=== PATIENT | female | born 1935 | race Caucasian/White ===

== ENCOUNTER 2016-10-25 19:27 | Inpatient (IN) | payer MEDICARE, OTHER ==
--- NOTE | ~2016-10-25 | DS ---
Discharge Summary [facility] [address] [place]. [address] NAME: STAR NOEL : 36 STATUS : DIS IN PAT#: [id number] AGE: 81 ADM/REG DATE : 10/25/16 MR#: [id number] REPORT SERV DATE: 01/16/17 DICTATED BY: SVITLANA CAROLINA DATE: 01/16/17 REPORT STATUS : Draft TRANSCRIBED BY: JOSHUA DATE: 01/16/17 Data Collection from hospitalization DISCHARGE DIAGNOSES: 1. 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 2. Hypertension. 3. Arthritis. 4. Hypothyroidism. 5. Anxiety and depression. 6. History of trigeminal neuralgias. 7. Insomnia. 8. Cataracts. 9. Hypercholesterolemia. 10.History of myocardial infarction. 11.Right lung mass. 12.Gastroesophageal reflux disease. 13.Hemorrhoids. 14.Neuropathy of the lower extremities. 15.Former smoker. CONSULTATIONS: 1. Jaci Orozco NP. 2. Nate Sharpe MD. PROCEDURES PERFORMED: Right total hip arthroplasty on 10/26/2016. PATHOLOGY: Right femoral head, arthroplasty - focal reactive and degenerative changes (history of stress fracture). No evidence was seen of an infectious or neoplastic process. MEDICATIONS: Tenormin 100 mg daily; Colace 100 mg twice a day; ferrous sulfate 300 mg with breakfast and supper; Vimpat 150 mg three times a day; Synthroid 175 mcg daily; Claritin 10 mg daily; Theragran tablets one tablet with breakfast; Prilosec 20 mg at noon; MiraLAX powder one packet daily; Zocor 40 mg at bedtime; Coumadin 5 mg as instructed; Mylanta 30 mL as needed; Artificial Tears one drop in both eyes daily as needed; Dulcolax 10-15 mg orally or rectally as needed; Dellrose 7.5/325 one to two tablets every to six hours as needed for pain; milk of magnesia 30 mL as needed; MiraLAX powder one packet twice a day as needed; Altace 5 mg at bedtime; Maxzide one tablet on Mondays, Wednesdays, and Fridays; Restoril 30 mg at bedtime; vitamin B12 1000 mcg twice a day; and Artificial Tears one drop daily as needed. CONDITION AT DISCHARGE: Stable. DISPOSITION: The patient was discharged to [facility] on a cardiac diet with activities as instructed. HOSPITAL COURSE: This is an 81-year-old female who fell in the past, and over the past year, has had intermittent pain in the right hip. She now presented with a stress fracture of the Discharge Summary [place] [id number] [place]. [address] NAME: STAR NOEL : 36 STATUS : DIS IN PAT#: [id number] AGE: 81 ADM/REG DATE : 10/25/16 MR#: [id number] REPORT SERV DATE: 01/16/17 DICTATED BY: SVITLANA CAROLINA DATE: 01/16/17 REPORT STATUS : Draft TRANSCRIBED BY: JOSHUA DATE: 01/16/17 femoral head. The patient has a history of hypothyroidism and inferior myocardial infarction in the past, right lung mass, hypercholesterolemia, trigeminal neuralgia, gastroesophageal reflux disease, and hypertension. Treatment options were discussed and it was elected to proceed with surgical intervention. She was admitted to the hospital for further evaluation and treatment. Upon admission, she was seen in consultation by Jaci Orozco regarding preop clearance for surgery. The patient was going to be continued on her Tenormin, Altace, and Maxzide. She was going to be placed on incentive telemetry. EKG was going to be performed. We would utilize O2 as needed to keep her saturations 92% or greater. BNP and troponin were going to be checked. Her Synthroid was continued for hypothyroidism. We were going to check TSH and free T4. Vimpat was continued as well as her Zocor and Prilosec. SCDs and TEDs were going to be ordered. Pending clearance for surgery and post surgery. Hemoglobin A1c was also going to be checked. The following day, she was seen by Dr. Nate Sharpe for preoperative cardiac clearance. The patient has a history of coronary artery disease and is status post percutaneous coronary intervention to the right coronary artery in 2011 with preserved left ventricular/right ventricular function. The patient has no decompensated cardiac condition that he was able to discern and was entirely asymptomatic from a cardiac standpoint. He felt it would be fine for her to proceed with surgical repair of the right hip. He felt she would need to be continued on her beta-popeye through the perioperative period as being on this would minimize her risk of perioperative cardiac event. Altace, Maxzide, and hydralazine were going to be held. She denied any shortness of breath at this time. She was taken to the operating room where she underwent the above-mentioned procedure. She tolerated this well, and there were no complications. On day #1, her INR level was 1.2. She had no new complaints. She had no edema. Her dressings were clean, dry, and intact. Blood pressure was currently controlled. Discharge planning was performed. Level 2 sliding scale insulin continued. A dose of milk of magnesia was given. She was encouraged to mobilize with Physical Therapy. On 10/28/2016, she did complain of hip pain. She did have occasional burping. She was not passing flatus. She denied nausea or vomiting. She did have a poor appetite. White count was 12.3. Her hemoglobin A1c was 6.2. She was alert and cooperative. She had been evaluated by Physical Therapy. Discharge instructions were given. Due to her improved and stable condition, she was discharged to [facility] with the above-stated instructions. Information collected by: Shell Grant I submit the above information as my discharge summary. TIFFANIE/JOSHUA Svitlana Carolina M.D. / [id number] CC: Svitlana Carolina M.D. Discharge Summary [address] [address] NAME: STAR NOEL : 36 STATUS : DIS IN PAT#: [id number] AGE: 81 ADM/REG DATE : 10/25/16 MR#: [id number] REPORT SERV DATE: 01/16/17 DICTATED BY: SVITLANA CAROLINA DATE: 01/16/17 REPORT STATUS : Draft TRANSCRIBED BY: JOSHUA DATE: 01/16/17 Alex De Leon M.D. [facility] Nate Sharpe MD
--- NOTE | ~2016-10-25 | OP ---
Record Of Operation [facility] [address] [place]. 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 PROCEDURE PERFORMED: Right total hip arthroplasty. SURGEON: Svitlana Carolina M.D. STATION TENDER: Cisco Givens. ANESTHESIA: General with local infusion. PROCEDURE IN DETAIL: The patient is clearly identified and after obtaining informed consent is brought to the operating room at [facility] where here the patient is induced under general anesthesia and subsequently placed in the left lateral decubitus position. This concluded, the thigh and flank are prepped and draped in the usual manner. A time-out procedure successfully performed and after registering the knee and marking the anatomy through an approximately 4.5 incision, the skin is divided. The fascial planes are divided. The lateral fascia then is divided. Hemostasis is obtained with electrocautery and a Charnley retractor is applied. The piriformis is identified, tagged, divided, and retracted over the sciatic nerve felt deep in the wound. At which point, the mini approach to the hip is formed with dividing the capsule in a mini approach with a cuff of tissues remaining at the femoral side to accomplish repair at the conclusion of the case. Dislocating the hip, end-stage arthritic changes are noted. The tissue surrounding the femoral neck are protected with the Hohmann retractor and the femoral neck cut is made according to preoperative templating. This concluded, the femoral head is removed. The acetabulum is exposed. The labral and fluvial tissues are removed and reaming is performed. Subsequently trialing with the appropriate trial, the permanent acetabular components placed with the [place] Sector. At which point, the acetabular trial component is then placed. The proximal femur is then addressed. The structures posteromedial to the greater trochanter are removed and this concluded the cookie-akira canal finder lateralizer and reaming is performed. This concluded, broaching is performed and with excellent fit-fill and stability for the implant trialing is performed finding excellent leg length, stability, no impingement, good kickback, no push-pull, and the lesser trochanter palpably at the appropriate distance from the ischium when compared to preoperative templating. The trials were felt to be appropriate. These are all then removed and the permanent implants are then carefully applied uneventfully. Copious irrigation is then performed with same stability and findings noted after insertion. At which point, the joint then is carefully closed in layers including capsule, piriformis, lateral fascia, deep tissues, and skin. Aquacel dressing is applied and the patient is then allowed to awaken, is placed supine and is returned to the recovery room in stable condition having tolerated the procedure well. Record Of Operation [facility] [address] [place]. [address] NAME: STAR NOEL : 36 STATUS : ADM IN PAT#: [id number] AGE: 81 ADM/REG DATE : 10/25/16 MR#: [id number] REPORT SERV DATE: 10/26/16 DICTATED BY: SVITLNAA CAROLINA DATE: 10/26/16 REPORT STATUS : Draft TRANSCRIBED BY: JOSHUA DATE: 10/26/16 ESTIMATED BLOOD LOSS: 200 mL. FLUIDS: 1000 mL. TOURNIQUET TIME: None. PATHOLOGY: Sent specimen. MICROBIOLOGY: None. COMPLICATIONS: None. SPONGE AND NEEDLE COUNTS: Reportedly correct. ANTIBIOTICS: Administered appropriately preoperatively and ordered to be discontinued within 23 hours. IMPLANTS: DePuy hip system, femur Sims, size 5 standard +1.5/36 metal head. Acetabulum, [place] sector 52 with a +4 neutral liner and 2 screws. KWAME/JOSHUA Svitlana Carolina M.D. / [id number] CC: Svitlana Carolina M.D.
--- NOTE | ~2016-10-25 | CN ---
Consultation Report [address] [place]. [address] NAME: STAR NOEL : 36 STATUS : ADM IN PAT#: [id number] AGE: 81 ADM/REG DATE : 10/25/16 MR#: [id number] REPORT SERV DATE: 10/26/16 DICTATED BY: CLINTONJACI GATITO DATE: 10/25/16 REPORT STATUS : Draft TRANSCRIBED BY: MODL DATE: 10/25/16 CONSULTATION DATE OF CONSULTATION: 10/25/2016 REASON FOR CONSULTATION: Consulted for preop clearance for surgery. IDENTIFYING DATA: 1. PCP Alex De Leon. 2. Instructor Business Education Stan Carrasco M.D. 3. Neurologist Shar Buckley M.D. 4. ENT Nj Hernandez M.D. 5. Vascular Surgery, Cisco Etienne Jr. M.D. 6. Orthopedist Teto iWlson M.D. 7. Urologist Mario Baer. HISTORY OF PRESENT ILLNESS: This is a pleasant 81-year-old, female, who presents to Dr. Breezy Carolina after a fall she states approximately a year ago, and over the past year, she has had intermittent pain to her right hip. She now presents with a stress fracture of the femoral head for which she is planned for surgery. The patient has a history of hypothyroidism, inferior UT in the past, a right lung mass, high cholesterol, trigeminal neuralgia, GERD, hypertension. The hospitalist group is consulted to clear her for surgery in the a.m. The patient's history was obtained through interview with the patient coupled with review of b3 bio and [employer]. PAST MEDICAL HISTORY: 1. Arthritis. 2. Hypothyroidism. 3. Anxiety. 4. Depression. 5. Trigeminal neuralgia diagnosed 14 years ago. 6. Insomnia. 7. Wears glasses. 8. Cataracts. 9. Wears dentures. 10.Sinusitis. 11.Hypertension. 12.High cholesterol. 13.UT. 14.Right lung mass. 15.UTI with leaky bladder problems. 16.Right knee pain. 17.GERD. 18.Previous vaginal delivery of children x2. Consultation Report [address] [place]. [address] NAME: STAR NOEL : 36 STATUS : ADM IN PAT#: [id number] AGE: 81 ADM/REG DATE : 10/25/16 MR#: [id number] REPORT SERV DATE: 10/26/16 DICTATED BY: JACI ALONZO DATE: 10/25/16 REPORT STATUS : Draft TRANSCRIBED BY: JOSHUA DATE: 10/25/16 19.Colon polyps. 20.Ankle swelling. 21.Hemorrhoids. 22.Neuropathy of lower extremities. HOME MEDICATIONS: 1. Artificial Tears, one drop ophthalmically daily p.r.n. dryness in both eyes. 2. Atenolol 100 mg p.o. daily. 3. Vitamin D 1000 units p.o. twice a day. 4. Vitamin B12 1000 mcg p.o. twice a day. 5. [place] 5/325 one tablet p.o. twice a day p.r.n. pain. 6. Vimpat 150 mg p.o. three times daily. 7. Synthroid 175 mcg p.o. daily. 8. Prilosec 20 mg p.o. at 12 o'clock. 9. Altace 5 mg p.o. at bedtime. 10.Zocor 40 mg p.o. at bedtime. 11.Restoril 30 mg p.o. at bedtime. 12.Maxzide-25, one tab, p.o. Sunday, Sunday, and Sunday. ALLERGIES: TO TEGRETOL, AND SHE DOES NOT TAKE PLAVIX DUE TO BLEEDING. SOCIAL HISTORY: The patient is for approximately 14 years. She has two children between her and her , was a previous smoker, quit 1975. Lives in a single-level home. Uses a walker since she has the femoral head stress fracture. She does say that she gets shortness of breath when walking the stairs and with exertion. FAMILY HISTORY: Positive for obesity, hyperproteinemia, and hypertension. Mother had hypertension as well as father and her brother. She had seven brothers and five sisters. SURGICAL HISTORY: 1. Bilateral cataract surgery. 2. A cardiac cath with a stent placed in [address] Lomeli for an acute inferior ST- elevation UT. 3. Right middle lobe lung surgery in September 2015. 4. Hysterectomy. 5. Appendectomy 1978. 6. Right knee surgery on 08/08/[address] Wilson. 7. Right hand surgery [address] Gutiérrez. 8. EGD. 9. Colonoscopy. REVIEW OF SYSTEMS: The patient is alert and oriented x3. Has no complaints of nausea or vomiting. No abdominal pain. No chest pain. States has no fever. States presently has no shortness of breath but she has related that she has shortness of breath with exertion at times. No Consultation Report [place] [id number] [place]. [address] NAME: STAR NOEL : 36 STATUS : ADM IN [facility]#: [id number] AGE: 81 ADM/REG DATE : 10/25/16 MR#: [id number] REPORT SERV DATE: 10/26/16 DICTATED BY: JACI ALONZO DATE: 10/25/16 REPORT STATUS : Draft TRANSCRIBED BY: JOSHUA DATE: 10/25/16 agitation and no confusion presently on admission. PHYSICAL EXAMINATION: VITAL SIGNS: From today blood pressure 164/74, heart rate 68, respiratory rate 16, O2 saturation 94% on room air. GENERAL: She is a very pleasant, 81-year-old, female, resting in bed with family at bedside. NEURO: Her head is atraumatic, normocephalic. She is alert and oriented x3. Her cranial nerves are intact. She has pleasant mood and is appropriate. NECK: Neck is supple. Trachea is midline. No JVD noted. No obvious thyromegaly or lymphadenopathy. EENT: Her sclerae are nonicteric. Her pupils are equal, reactive to light. Her nares are patent. Mucous membranes moist. Tongue is midline. No deviation. Soft palate rises equally with phonation. CHEST: No pain with palpation. She states that she has no chest pain even with shortness of breath on exertion but her shortness of breath on exertion is with walking upstairs. LUNGS: Clear to auscultation bilaterally. She has normal respiratory effort. No increased work of breathing at present time with conversation. CARDIOVASCULAR: S1, S2. No appreciable murmurs, rubs, or gallops. She will be placed on defensive monitoring telemetry. EKG is ordered. Her previous EKG displayed in October of 2015 a sinus rhythm with a 1st degree AV block. Her heart rate on auscultation is regular rate and rhythm. Rate in the 60s. ABDOMEN: Soft, nontender, with bowel sounds active. No palpable organomegaly. Last bowel movement was 10/25/2016. EXTREMITIES: Her pulses are present and equal bilaterally. No edema. No calf tenderness. She will have SCDs and TEDs placed for DVT prophylaxis. SKIN: Warm and dry. No unusual rashes or lesions. Normal color and turgor for age. PSYCH: The patient is pleasant and cooperative. Appropriate mood and affect. LABORATORY DATA: Much of the laboratory data is still pending, and we have just a little bit of it back at present time. Her sodium is 138. Her potassium is 3.6, chloride 103, BUN 12, creatinine 0.89, GFR is 61, glucose is 133, calcium is 9.7, alkaline phosphatase is 125. ALT is 15, AST is 19. She has a portable chest x-ray ordered. She also has a present EKG ordered. ASSESSMENT AND PLAN: 1. The patient has hypertension, we are aware. She also has a history of an UT with a stent placed in 2011. We will continue her Tenormin, her Altace and Maxzide is ordered daily. We will place her on defensive telemetry. We will check an EKG which is pending. 2. Shortness of breath on exertion, she states on admission report at home at times. She is not on O2. We will utilize O2 p.r.n. as needed to keep her sats 92% or greater. We will check a BNP and a troponin and also consult Cardiology for which she sees Dr. Stan Carrasco for her shortness of breath and cardiac clearance. She states she has Consultation Report [address] [address] NAME: STAR NOEL : 36 STATUS : ADM IN [facility]#: [id number] AGE: 81 ADM/REG DATE : 10/25/16 MR#: [id number] REPORT SERV DATE: 10/26/16 DICTATED BY: JACI ALONZO DATE: 10/25/16 REPORT STATUS : Draft TRANSCRIBED BY: MODL DATE: 10/25/[address] Carrasco, since earlier in 2016. 3. Hypothyroidism. Aware. We will continue her Synthroid daily. We will check a TSH and a free-T4 on her labs. 4. Trigeminal neuralgia. Aware. She does see Dr. Shar Buckley, her neurologist who manages her trigeminal neuralgia. We will continue her Vimpat as ordered. 5. Hypercholesterolemia. Aware. She will have her Zocor daily continued. 6. Gastroesophageal reflux disease. Aware. We will continue her Prilosec. 7. DVT prophylaxis. We will order SCDs and TEDs pending clearance for surgery and post surgery. Labs ordered; CMP, PT, PTT, INR, urinalysis, portable chest x-ray, EKG, TSH, free T4, BNP, troponin, hemoglobin A1c. The majority of the patient's lab work tonight is still pending as well as urinalysis. Cardiology will need to see her first thing in the morning. It is concerning that she has shortness of breath on exertion, and she does have a history of previous UT as well as stent placement. We will await pending labs for this morning as well as the input from the a.m. team and the cardiac clearance from her project manager/design manager pending surgery. The patient is at risk based on age and her comorbidities. If cleared in the a.m. for surgery, we would then recommend surgery at Dr. Carolina's discretion. The hospitalist group would like to thank you for this consultation. Please let us know if we could be of further assistance. PRITI Jaci Alonzo NP / [id number] CC: Sushma Metcalf M.D.
--- NOTE | ~2016-10-25 | CN ---
Consultation Report [facility] [address] [place]. [address] NAME: STAR NOEL : 36 STATUS : ADM IN PAT#: [id number] AGE: 81 ADM/REG DATE : 10/25/16 MR#: [id number] REPORT SERV DATE: 10/26/16 DICTATED BY: NATE WOMACK DATE: 10/26/16 REPORT STATUS : Draft TRANSCRIBED BY: MODIsela DATE: 10/26/16 CONSULTATION DATE OF CONSULTATION: 10/26/2016 REASON FOR CONSULTATION: Preoperative cardiac clearance. PRIMARY GARAGE MANAGER: Dr. Stan Carrasco. HISTORY OF PRESENT ILLNESS: Ms. Noel is a very pleasant 81-year-old female with a history of obesity, hypertension, hyperlipidemia, and coronary artery disease, status post PCI to the right coronary artery in 2011, with preserved LV/RV function, who fell some time in June. She was briefly evaluated for this, but did not get any specific intervention at that time. She also only had mild soreness in her right hip following the fall. She continue to do her day-to-day activities with minimal limitation over the past two to three months. She walks up stairs. She carries groceries. She is able to clean the home without any symptoms whatsoever. However, her right hip pain has worsened recently, prompted imaging that demonstrated a right hip fracture. She is now awaiting surgery for this. She has no other complaints at this time. She is taking all of her medicines, including her cardiovascular medicines without any issue and is actively following with Dr. Carrasco on an outpatient basis. ALLERGIES: TEGRETOL. PAST MEDICAL HISTORY: As above. SOCIAL HISTORY: The patient lives at home with her and functions independently. She denies using alcohol, smoking, or using drugs. She is very functional. FAMILY HISTORY: Noncontributory for premature cardiovascular disease. HOME MEDICATIONS: 1. Atenolol. 2. Vitamin D. 3. Vitamin B12. 4. Vimpat. 5. Synthroid. 6. Prilosec. 7. Ramipril. 8. Zocor. 9. Restoril. 10.Maxzide. REVIEW OF SYSTEMS: Consultation Report [place] [id number] [facility] [place] [facility] [place] [address] NAME: STAR NOEL : 36 STATUS : ADM IN PAT#: [id number] AGE: 81 ADM/REG DATE : 10/25/16 MR#: [id number] REPORT SERV DATE: 10/26/16 DICTATED BY: NATE WOMACK DATE: 10/26/16 REPORT STATUS : Draft TRANSCRIBED BY: JOSHUA DATE: 10/26/16 As above, all other systems otherwise negative. PHYSICAL EXAMINATION: VITAL SIGNS: Blood pressure 118/69, pulse 88, temperature 97.0. GENERAL: Obese, pleasant, well developed, well nourished. NEURO: Awake, alert and oriented x3; no focal deficits, appropriate mood. HEENT: Moist mucous membranes, anicteric sclerae, no nasal discharge. NECK: No JVD, no carotid bruit. LUNGS: Clear to auscultation bilaterally, no wheezes, rales or rhonchi. CV: Regular rhythm, normal S1/S2, no murmurs, rubs or gallops. ABD: Soft, non-tender, non-distended, no rebound or guarding. EXT: No pitting edema, normal distal pulses. SKIN: Warm, dry and intact; no rash. PERTINENT TESTS FINDINGS: Potassium 3.8, creatinine 0.89. White blood cell count 6.3, hemoglobin 13.3. Troponin 0.05. BNP 69. TSH 0.16 with normal free T4. EKG with sinus bradycardia, some T-wave inversions in lead III, which are old, and aVF; otherwise normal EKG. IMPRESSION AND PLAN: Ms. Noel is a very pleasant 81-year-old female with a history as detailed above, who presents with a right hip fracture, awaiting surgery. She functions at greater than 4 METS, has no decompensated cardiac condition that I am able to discern, and is entirely asymptomatic from a cardiac standpoint (denies chest pains, pressures, dyspnea on exertion, or exertional symptoms). Therefore, I believe it will be fine for her to proceed with surgical repair of right hip. Importantly, she will need to be continued on her beta-popeye through the perioperative period and being on this to minimize her risk of a perioperative cardiac event. Her estimated risk for perioperative cardiac arrest for NC is approximately 2%. This has been fully disclosed to her. We will follow along in postoperative course. JOSSELIN/JOSHUA Nate Womack MD / [id number] CC: Breezy Carolina M.D.
[~2016-10-25 19:27] MED LIST: ALTA2.5 PO; ATEN100 PO; MAX25 PO; NORCO1 TA1 PO; PRILO PO; PROBIOTICS; RESTORIL30 MG PO; SYN1 PO; SYNTHROID175 MCG; TYLENOL ARTHRITIS PO; VIMPAT100 MG PO; VIMPAT150 MG PO; VITC500 PO; ZOCOR20 PO; ZOCOR40 PO
[2016-10-25] MEDS ORDERED: ATEN100 PO (21:32)
[2016-10-25] MEDS ORDERED: VIMPAT150 MG PO (21:32)
[2016-10-25] MEDS ORDERED: NORCO1 TA1 PO (21:33)
[2016-10-25] MEDS ORDERED: ZOCOR40 PO (21:33)
[2016-10-25] MEDS ORDERED: PRILO PO (21:33)
[2016-10-25] MEDS ORDERED: SYNTHROID175 MCG PO (21:33)
[2016-10-25] MEDS ORDERED: VITAMIN D1000 UNI1 PO (21:33)
[2016-10-25] MEDS ORDERED: ALTA5 PO (21:34)
[2016-10-25] MEDS ORDERED: MAX25 PO (21:34)
[2016-10-25] MEDS ORDERED: TEARS PURE OPH (21:35)
[2016-10-25] MEDS ORDERED: CYANO1000T PO (21:35)
[2016-10-25] MEDS ORDERED: RESTORIL30 MG PO (21:35)
[2016-10-25 21:48] LABS: BASOPHILS 0.3 %; BASOPHILS ABSOLUTE 0.02 10/3/uL (0.0-0.16); EOSINOPHILS ABSOLUTE 0.06 10/3/uL (0.0-0.53); HEMATOCRIT 39.9 % (36.0-48.0); HEMOGLOBIN 13.3 g/dL (12.0-16.0); IMMATURE GRANULOCYTES 0.2 %; IMMATURE GRANULOCYTES ABSOLUTE 0.01 10/3/uL (0.0-0.11); LYMPHOCYTES 31.3 %; LYMPHOCYTES ABSOLUTE 1.96 10/3/uL (0.67-4.30); MANUAL DIFF NO %; MEAN CORPUS HGB CONC 33.3 g/dL (32.0-36.0); MEAN CORPUSCULAR HEMOGLOB 30.4 pg (26.0-34.0); MEAN CORPUSCULAR VOLUME 91.3 fL (80-100); MEAN PLATELET VOLUME 9.7 fL (9.2-13.0); MONOCYTES 6.9 %; MONOCYTES ABSOLUTE 0.43 10/3/uL (0.21-1.20); NEUTROPHILS 60.3 %; NEUTROPHILS ABSOLUTE 3.79 10/3/uL (2.02-8.40); PLATELET COUNT 176 10/3/uL (150-400); RBC DISTRIBUTION WIDTH 13.1 % (12.0-16.0); RED CELL COUNT 4.37 10/6/uL (4.0-5.6); WHITE BLOOD CELLS 6.3 10/3/uL (4.5-10.5)
[2016-10-25 21:59] LABS: INTERNATIONAL NORMAL RATI 1.1 UNITS (-); PROTIME (NOT ORD) 14.3 SEC (12.0-14.5)
[2016-10-25 22:02] LABS: A/G RATIO 1.1 (0.7-1.9); ALBUMIN 3.7 G/DL (3.5-5.0); ALKALINE PHOSPHATASE 125 U/L (45-117); BUN (BLOOD UREA NITROGEN) 12 MG/DL (6-23); CALCIUM, SERUM 9.5 MG/DL (8.5-10.4); CHLORIDE, SERUM 103 MMOL/L (96-112); CREATININE 0.89 MG/DL (0.55-1.02); GFR AFRICAN AMERICAN 71 ML/MIN (>=60); GFR NON AFRICAN AMERICAN 61 ML/MIN (>=60); GLOBULIN 3.5 G/DL (2.5-4.1); GLUCOSE, SERUM 133 MG/DL (60-99); POTASSIUM, SERUM 3.8 MMOL/L (3.5-5.3); SGPT(ALT) 15 U/L (5-65); SODIUM, SERUM 138 MMOL/L (135-148); TOTAL BILIRUBIN 0.4 MG/DL (0-1.2); TOTAL PROTEIN 7.2 G/DL (6.0-8.5)
[2016-10-25 22:06] LABS: CO2 (CARBON DIOXIDE) 29 MMOL/L (24-34); SGOT(AST) 19 U/L (5-40)
[2016-10-25 23:10] LABS: B NATRIURETIC PEPTIDE (BNP) 68.5 PG/ML (< 100.0)
[2016-10-25 23:28] LABS: FREE T4 1.46 NG/DL (0.76-1.46)
[2016-10-25 23:40] LABS: TROPONIN I 0.05 NG/ML (<0.05); ULTRASENSITIVE TSH 0.166 MCIU/ML (0.358-3.740)
[2016-10-26 06:53] LABS: ASCORBIC ACID (UR NOT ORDER) NEG (NEG); BILIRUBIN, URINE NEGATIVE (NEG); KETONE, URINE NEGATIVE (NEG); LEUKOCYTE ESTERASE(NOT OR NEG (NEG); WBC (NOT ORDERED) (RFLEX) 1 (0-5)
[2016-10-26 09:58] LABS: GLYCOHEMOGLOBIN (HbA1c) 6.2 % (4.7-6.1)
[2016-10-27 04:29] LABS: BASOPHILS 0.1 %; BASOPHILS ABSOLUTE 0.01 10/3/uL (0.0-0.16); EOSINOPHILS 0 %; IMMATURE GRANULOCYTES 0.2 %; IMMATURE GRANULOCYTES ABSOLUTE 0.03 10/3/uL (0.0-0.11); LYMPHOCYTES 6.4 %; LYMPHOCYTES ABSOLUTE 0.79 10/3/uL (0.67-4.30); MEAN CORPUS HGB CONC 33.4 g/dL (32.0-36.0); MEAN CORPUSCULAR HEMOGLOB 30.6 pg (26.0-34.0); MEAN CORPUSCULAR VOLUME 91.4 fL (80-100); MEAN PLATELET VOLUME 9.9 fL (9.2-13.0); MONOCYTES 6.5 %; NEUTROPHILS 86.8 %; NEUTROPHILS ABSOLUTE 10.71 10/3/uL (2.02-8.40); PLATELET COUNT 156 10/3/uL (150-400); RBC DISTRIBUTION WIDTH 13.4 % (12.0-16.0)
[2016-10-27 04:31] LABS: HEMATOCRIT 32.9 % (36.0-48.0); WHITE BLOOD CELLS 12.3 10/3/uL (4.5-10.5)
[2016-10-27 04:32] LABS: MANUAL DIFF NO %
[2016-10-27 04:35] LABS: INTERNATIONAL NORMAL RATI 1.2 UNITS (-); PROTIME (NOT ORD) 15.5 SEC (12.0-14.5)
[2016-10-27 04:59] LABS: BUN (BLOOD UREA NITROGEN) 15 MG/DL (6-23); CALCIUM, SERUM 8.7 MG/DL (8.5-10.4); CHLORIDE, SERUM 102 MMOL/L (96-112); CO2 (CARBON DIOXIDE) 26 MMOL/L (24-34); CREATININE 0.95 MG/DL (0.55-1.02); GFR AFRICAN AMERICAN 66 ML/MIN (>=60); GFR NON AFRICAN AMERICAN 57 ML/MIN (>=60); SODIUM, SERUM 135 MMOL/L (135-148)
[2016-10-27 05:11] LABS: ALKALINE PHOSPHATASE 89 U/L (45-117); GLUCOSE, SERUM 171 MG/DL (60-99); POTASSIUM, SERUM 4.7 MMOL/L (3.5-5.3)
[2016-10-28 05:18] LABS: HEMOGLOBIN 9.8 g/dL (12.0-16.0)
[2016-10-28 05:24] LABS: HEMATOCRIT 28.5 % (36.0-48.0)
[2016-10-28 05:29] LABS: INTERNATIONAL NORMAL RATI 1.5 UNITS (-); PROTIME (NOT ORD) 18.3 SEC (12.0-14.5)
== END 2016-10-28 14:16 | DRG 470 ==
LOC: 3SO 19:27
PROVIDERS: Nurse Practitioner Family; Orthopaedic Surgery
PROC: 0SR902Z Replacement of Right Hip Joint with Metal on Polyethylene Synthetic Substitute, Open Approach (ICD-10-PCS; principal; 2016-10-25)
DX: S72.001A Fracture of unspecified part of neck of right femur, initial encounter for closed fracture (principal); M87.051 Idiopathic aseptic necrosis of right femur; I10 Essential (primary) hypertension; E03.9 Hypothyroidism, unspecified; G50.0 Trigeminal neuralgia; E78.00 Pure hypercholesterolemia, unspecified; K21.9 Gastro-esophageal reflux disease without esophagitis; I25.10 Atherosclerotic heart disease of native coronary artery without angina pectoris; Z95.5 Presence of coronary angioplasty implant and graft; I25.2 Old myocardial infarction; F41.9 Anxiety disorder, unspecified; F32.9 Major depressive disorder, single episode, unspecified
CPT/HCPCS: 36415; 71010; 72170; 80048; 80053; 81001; 83036; 83735; 83880; 84075; 84439; 84443; 84484; 85014; 85018; 85025; 85610; 86850; 86900; 86901; 87641; 88305; 88311; 93005; 97110-GP; 97116-GP; 97161-GP; 97166-GO; A9270-GY; C1713; C1776; G8978-CK-GP; G8979-CI-GP; J0690; J1170; J1885; J2274; J2405; J2710; J2795; J3010; J3370